=== PATIENT | female | born 1955 | race Caucasian/White ===

== ENCOUNTER 2019-02-21 01:13 | Emergency (ER) | payer OTHER ==
[~2019-02-21] VITALS: Ht 144.8 cm; Wt 87.5 kg
[2019-02-21] MEDS ORDERED: LACT1CAP43 PO (01:43)
[2019-02-21] MEDS ORDERED: AMLO-150 PO (01:43)
[2019-02-21] MEDS ORDERED: FAMO40TA61 PO (01:43)
[2019-02-21] MEDS ORDERED: ASPI-496 PO (01:43)
[2019-02-21] MEDS ORDERED: SIMV20TA3 PO (01:43)
[2019-02-21] MEDS ORDERED: LISI40TA PO (01:43)
[2019-02-21] MEDS ORDERED: SERT100T32 PO (01:43)
[2019-02-21] MEDS ORDERED: DOXA2TAB PO (01:43)
[2019-02-21] MEDS ORDERED: TUMERIC PO (01:43)
--- NOTE | 2019-02-21 01:44 | NUR ---
PT HERE FOR DARK TARRY STOOL SINCE MONDAY. PT WENT TO [facility] TODAY AND WAS TOLD TO COME TO HOSPITAL FOR SYMPTOMS. VSS. PT DENIES PAIN. AT BESIDE. CALL LIGHT IN REACH
[2019-02-21] MEDS ORDERED: PANTOPRAZOLE 80 MG in SODIUM CHLORIDE 0.9% 50 ML IVPB ONE (01:49)
[2019-02-21] MEDS ORDERED: PANTOPRAZOLE 80 MG in SODIUM CHLORIDE 0.9% 100 ML IV SCH ×2 (02:00→02:39)
[2019-02-21] MEDS ORDERED: SODIUM CHLORIDE FLUSH 10ML SYR IVF ONE (02:00)
[2019-02-21 02:17] LABS: BASOPHILS # (AUTO) 0.01 x10^3/uL (0-0.1); BASOPHILS % (AUTO) 0 % (0-1); EOSINOPHILS # (AUTO) 0.07 x10^3/uL (0-0.4); EOSINOPHILS % (AUTO) 1 % (1-7); LYMPHOCYTES # (AUTO) 1.55 x10^3/uL (1-3.4); LYMPHOCYTES % (AUTO) 16 % (22-44); MD NO; MEAN CORPUSCULAR HEMOGLOBIN 31.3 pg (27.0-34.8); MEAN CORPUSCULAR HGB CONC 34.4 g/dL (32.4-35.8); MEAN PLATELET VOLUME 7.7 fL (7.4-10.4); MONOCYTES # (AUTO) 0.43 x10^3/uL (0.2-0.8); MONOCYTES % (AUTO) 5 % (2-9); NEUTROPHILS # (AUTO) 7.54 x10^3/uL (1.8-6.8); NEUTROPHILS % (AUTO) 78 % (42-75); PLATELET COUNT 306 x10^3/uL (130-400); RED BLOOD COUNT 2.91 x10^6/uL (3.82-5.3); RED CELL DISTRIBUTION WIDTH 14.2 % (9.6-15.2)
[2019-02-21 02:23] LABS: PROTHROMBIN TIME 10.5 Seconds (9.6-11.5)
[2019-02-21 02:25] LABS: ALANINE AMINOTRANSFERASE 23 U/L (12-78); ALBUMIN 3.9 g/dL (3.4-5.0); ANION GAP 7 mmol/L (5-15); CALCIUM 8.9 mg/dL (8.5-10.1); CHLORIDE 108 mmol/L (98-107); CREATININE 0.91 mg/dL (0.55-1.02)
[2019-02-21 02:28] LABS: ALKALINE PHOSPHATASE 47 U/L (45-117); TOTAL PROTEIN 7.3 g/dL (6.4-8.2)
[2019-02-21 02:38] LABS: BILIRUBIN,TOTAL < 0.1 mg/dL (0.2-1.0)
--- NOTE | 2019-02-21 02:54 | NUR ---
EMILEE BERRY RUNNING. VSS. CALL LIGHT IN REACH
[2019-02-21] MEDS ORDERED: SODIUM CHLORIDE 0.9%, 500ML IVBOLUS ONE (03:00)
--- NOTE | 2019-02-21 03:33 | NUR ---
AUTOMATIC RIVETING MACHINE OPERATOR CALLED IN, CHANDNI STATES SHE WILL COME IN AT THIS TIME
--- NOTE | 2019-02-21 03:41 | NUR ---
PT UP TO BATHROOM.
[2019-02-21] MEDS ORDERED: PROPOFOL 10 MG/ML, 20ML IVPush ONE (04:00)
[2019-02-21] MEDS ORDERED: PROPOFOL 10 MG/ML, 20ML ONE (04:17)
--- NOTE | 2019-02-21 04:40 | NUR ---
PT MOVED TO TRAU[facility] 2 FOR EGD. PT SIGNED CONSENT. PT PLACED ON ALL MONITORS. VSS. ALL QUESTIONS ANSWERED. SON AT BEDSIDE
--- NOTE | 2019-02-21 05:05 | NUR ---
PT BEING MONITORED PRIOR TO PROCEDURE. [facility] B[employer] AND [employer] AT BEDSIDE. PT ON CAPNOGRAPHY AND CARDIAC MONITORING. ALL QUESTIONS HAVE BEEN ANSWERED.
--- NOTE | 2019-02-21 05:29 | NUR ---
PT TOLERATED PROCEDURE WELL AND IS NOW AWAKE AND ALERT. SON AT BEDSIDE.
--- NOTE | 2019-02-21 06:00 | NUR ---
PT RESTING WITH NO NEEDS AT THIS TIME. PT WAITING FOR LAB RESULTS. SON AT BEDSIDE
[2019-02-21 06:40] VITALS: BP 111/68
--- NOTE | 2019-02-21 06:55 | NUR ---
Patient given discharge instructions and they have confirmed that they understand the instructions. Patient ambulatory with steady gait.
== END 2019-02-21 07:02 | disposition home or self-care (01) ==
LOC: ED 06:50
DX: K92.1 Melena (principal)
CPT/HCPCS: 36415; 43235; 80053; 83690; 85014; 85018; 85025; 85610; 85730; 86850; 86900; 96365; 96366; 99285; C9113; J7040